=== PATIENT | female | born 1995 | race African-American/Black ===

== ENCOUNTER 2020-05-09 06:31 | Emergency (ER) | payer BC, OTHER ==
[~2020-05-09] VITALS: Ht 185.4 cm; Wt 122.5 kg
[2020-05-09] MEDS ORDERED: VITAMIN D31250 MCG PO (06:44)
[2020-05-09] MEDS ORDERED: KLOR-CON 10 ER10 MEQ PO (06:45)
[2020-05-09] MEDS ORDERED: FOLIC ACID1 MG PO (06:45)
[2020-05-09 07:47] LABS: ABSOLUTE NEUTROPHILS 3.4 thou/uL (1.4-8.2); BASOPHILS 0.7 % (0.0-2.0); EOSINOPHILS 1.5 % (0.0-3.0); HEMATOCRIT 34.9 % (37.0-47.0); HEMOGLOBIN 11.7 gm/dL (12.0-15.0); LYMPHOCYTES 21.6 % (24.0-44.0); MCH 26.9 pg (26.0-34.0); MCHC 33.4 g/dL (28.0-37.0); MCV 80.4 fL (80.0-100.0); MONOCYTES 10.7 % (1.0-8.0); PLATELET COUNT 268 thou/uL (150-400); POLYS 65.5 % (36.0-66.0); RBC 4.34 mil/uL (4.20-5.00); RDW 19.4 % (10.5-14.5); WBC 5.2 thou/uL (4.0-11.0)
[2020-05-09 07:54] LABS: CALCIUM 8.7 mg/dL (8.5-10.1); CREATININE 0.7 mg/dL (0.6-1.0); POTASSIUM 3.7 mmol/L (3.5-5.1)
[2020-05-09 09:10] VITALS: BP 138/77
== END 2020-05-09 09:14 | disposition home or self-care (01) ==
LOC: ER 06:31
PROVIDERS: Emergency Medicine
DX: N93.8 Other specified abnormal uterine and vaginal bleeding (principal); A59.01 Trichomonal vulvovaginitis; Z79.899 Other long term (current) drug therapy